=== PATIENT | male | born 1960 | race Caucasian/White ===

== ENCOUNTER 2016-11-16 10:57 | Inpatient (IN) | payer SELFPAY ==
[~2016-11-16] VITALS: Ht 185.4 cm; Wt 89.9 kg
[2016-11-16] VITALS (7 sets, daily range): BP systolic 111–152; BP diastolic 64–82; PULSE 65–74; RESP 16–20; TEMP 96.5–98; O2SAT 97–100
[~2016-11-16 10:57] MED LIST: AMLO5 PO; ASPI325T33 PO; FOLI1TAB4 PO; LIPI10TA PO; METO25TA3 PO; NITR0.4S SL; PANT40TA3 PO; VITA100T2 PO
[2016-11-16] MEDS ORDERED: SODIUM CHLOR 0.9% 1000 ML INJ 1,000 ML IV SCH (11:23)
[2016-11-16] MEDS ORDERED: DIAZEPAM 5 MG TAB PO ONE (11:30)
[2016-11-16] MEDS ORDERED: SODIUM CHLORIDE 0.9% FLUSH 10 ML FLUSH IVF PRN (11:30)
[2016-11-16] MEDS ORDERED: MECLIZINE HCL 25 MG TAB PO ONE (11:30)
--- NOTE | 2016-11-16 11:35 | PD ---
HPI Chief Complaint: Dizziness Time Seen by Provider: 11:27 Travel History International Travel<30 days: No Contact w/Intl Traveler<30days: No Traveled to known affect area: No History of Present Illness HPI 56-year-old male with a history of CAD and alcohol abuse presents to the emergency department for evaluation of dizziness for 2 weeks. 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 States that he went home and drink plenty of fluids however the symptoms have persisted. States that when he is lying still in bed he is symptom-free however when he gets up and tries to walk he has double vision and gait instability, feels as though the richards and floors are shifting. Denies any lightheadedness, presyncope or syncope. Denies any chest pain, shortness of breath, nausea, vomiting, diarrhea, chest pain, shortness of breath, abdominal pain, numbness or tingling, weakness. States that 2 weeks ago after these symptoms began he lost his balance and fell hitting his head on a dresser but denies loss of consciousness. Denies any other head trauma. The patient does drink 12 beers daily, states he has had 3 beers today. Denies any anticoagulation. Denies taking any medications. Denies drug use. No other complaints. PFSH Past Medical History Blood Disorders: No Anxiety: No Depression: No Cancer: No Cardiac Catheterization: Yes (2009, 2015) Cardiovascular Problems: Yes Chest Pain: Yes Cerebrovascular Accident: No Diminished Hearing: No Endocrine: No Gastrointestinal Disorders: No Genitourinary: No Immune Disorder: No Implanted Vascular Access Dvce: No Musculoskeletal: No Neurologic: Yes Psychiatric: No Reproductive: No Respiratory: No Immunizations Current: Yes Migraines: Yes Myocardial Infarction: Yes (MILD) Seizures: No Tetanus Vaccination: Unknown Influenza Vaccination: No Past Surgical History Abdominal Surgery: No Cardiac Surgery: No Ear Surgery: No Endocrine Surgery: No Eye Surgery: No Genitourinary Surgery: No Gynecologic Surgery: No Oral Surgery: No Thoracic Surgery: No Tonsillectomy: Yes Other Surgery: Yes (SKIN CANCER REMOVED) Social History Alcohol Use: Yes (12X 12 oz BEERS DAILY) Tobacco Use: Yes (CHEWS TOBACCO) Substance Use: No Allergies-Medications (Allergen,Severity, Reaction): Coded Allergies: No Known Allergies (Verified , 11/16/16) Reported Meds & Prescriptions Reported Meds & Active Scripts Active No Active Prescriptions or Reported Medications Review of Systems Except as stated in HPI: all other systems reviewed are Neg Physical Exam Narrative GENERAL: Well-nourished and well-developed pleasant male patient in no acute distress who is nontoxic appearing. SKIN: Warm and dry. HEAD: Normocephalic and atraumatic. No bony point tenderness or crepitus noted throughout the sinuses. EYES: No injection, drainage, or hyphema noted. PERRLA. EOMI. ENT: No nasal drainage noted. Oropharynx is clear and the TMs are normal with good landmarks. NECK: Supple and the trachea is midline. CARDIOVASCULAR: Regular rate and rhythm. RESPIRATORY: Breath sounds are equal bilaterally with no accessory muscle use, wheezing, rhonchi, or crackles. GASTROINTESTINAL: Abdomen is soft, non-tender, and nondistended. MUSCULOSKELETAL: No obvious deformities, swelling, cyanosis, or ecchymosis is present throughout the upper and lower extremities. Patient has full range of motion without any signs of neurovascular compromise. Strength 5/5 upper and lower extremities equal bilaterally. NEUROLOGICAL: Awake, alert, and oriented. Normal speech and gait. Normal heel- to-suggs test. Normal finger to nose test. Normal rapid alternating movements. Cranial nerves are grossly intact. Data Data Last Documented VS Vital Signs Date Time Temp Pulse Resp B/P Pulse Ox O2 Delivery O2 Flow Rate FiO2 11/16/16 11:32 16 98 Room Air 11/16/16 11:20 69 125/79 11/16/16 10:59 97.3 Orders Electrocardiogram (11/16/16 11:23) Complete Blood Count With Diff (11/16/16 11:23) Comprehensive Metabolic Panel (11/16/16 11:23) Magnesium (Mg) (11/16/16 11:23) Act Partial Throm Time (Ptt) (11/16/16 11:23) Prothrombin Time / Inr (Pt) (11/16/16 11:23) Urinalysis - C+S If Indicated (11/16/16 11:23) Chest, Single Ap (11/16/16 11:23) Ct Brain W/O Iv Contrast(Rout) (11/16/16 11:23) Ecg Monitoring (11/16/16 11:23) Iv Access Insert/Monitor (11/16/16 11:23) Oximetry (11/16/16 11:23) Sodium Chloride 0.9% Flush (Ns Flush) (11/16/16 11:30) Meclizine (Antivert) (11/16/16 11:30) Diazepam (Valium) (11/16/16 11:30) Sodium Chlor 0.9% 1000 Ml Inj (Ns 1000 M (11/16/16 11:23) Alcohol (Ethanol) (11/16/16 11:30) Drug Screen, Random Urine (11/16/16 11:49) Aspirin Chew (Aspirin Chew) (11/16/16 13:45) Mri Brain W&W/O Contrast (11/16/16 ) Mra Brain W/O Contrast (Cow) (11/16/16 ) Us Carotid Arteries Comp Bilat (11/16/16 ) Echo 2d Comp With Doppler (11/16/16 ) Consult Neurology (11/16/16 ) Admit Order (Ed Use Only) (11/16/16 13:45) Admit To Inpatient (11/16/16 ) Vital Signs (Adult) Q4H (11/16/16 13:48) Neuro Checks Q4H (11/16/16 13:48) Activity Oob With Assistance (11/16/16 13:48) Diet Heart Healthy (11/16/16 Lunch) Sodium Chloride 0.9% Flush (Ns Flush) (11/16/16 14:00) Sodium Chloride 0.9% Flush (Ns Flush) (11/16/16 21:00) Ondansetron Inj (Zofran Inj) (11/16/16 14:00) Basic Metabolic Panel (Bmp) (11/17/16 06:00) Complete Blood Count With Diff (11/17/16 06:00) Scd Bilateral/Knee High FERNANDO.BID (11/16/16 13:48) Naloxone Inj (Narcan Inj) (11/16/16 14:00) Docusate Sodium-Senna (Eleni-Colace) (11/16/16 21:00) Magnesium Hydroxide Liq (Milk Of Magnesi (11/16/16 14:00) Sennosides (Senokot) (11/16/16 14:00) Bisacodyl Supp (Dulcolax Supp) (11/16/16 14:00) Lactulose Liq (Lactulose Liq) (11/16/16 14:00) Inpatient Certification (11/16/16 ) Labs Laboratory Tests Test 11/16/16 11:30 White Blood Count 6.2 TH/MM3 Red Blood Count 5.00 MIL/MM3 Hemoglobin 15.0 GM/DL Hematocrit 44.2 % Mean Corpuscular Volume 88.6 FL Mean Corpuscular Hemoglobin 30.1 PG Mean Corpuscular Hemoglobin 34.0 % Concent Red Cell Distribution Width 13.4 % Platelet Count 245 TH/MM3 Mean Platelet Volume 9.2 FL Neutrophils (%) (Auto) 58.4 % Lymphocytes (%) (Auto) 23.1 % Monocytes (%) (Auto) 14.4 % Eosinophils (%) (Auto) 2.9 % Basophils (%) (Auto) 1.2 % Neutrophils # (Auto) 3.6 TH/MM3 Lymphocytes # (Auto) 1.4 TH/MM3 Monocytes # (Auto) 0.9 TH/MM3 Eosinophils # (Auto) 0.2 TH/MM3 Basophils # (Auto) 0.1 TH/MM3 CBC Comment DIFF FINAL Differential Comment Prothrombin Time 10.8 SEC Prothromb Time International 1.0 RATIO Ratio Activated Partial 27.7 SEC Thromboplast Time Urine Color LIGHT-YELLOW Urine Turbidity CLEAR Urine pH 5.0 Urine Specific [place] 1.004 Urine Protein NEG mg/dL Urine Glucose (UA) NEG mg/dL Urine Ketones NEG mg/dL Urine Occult Blood NEG Urine Nitrite NEG Urine Bilirubin NEG Urine Urobilinogen LESS THAN 2.0 MG/DL Urine Leukocyte Esterase NEG Microscopic Urinalysis Comment CULT NOT INDICATED Sodium Level 134 MEQ/L Potassium Level 4.1 MEQ/L Chloride Level 101 MEQ/L Carbon Dioxide Level 24.0 MEQ/L Anion Gap 9 MEQ/L Blood Urea Nitrogen 10 MG/DL Creatinine 0.95 MG/DL Estimat Glomerular Filtration 81 ML/MIN Rate Random Glucose 85 MG/DL Calcium Level 9.6 MG/DL Magnesium Level 2.0 MG/DL Total Bilirubin 0.4 MG/DL Aspartate Amino Transf 43 U/L (AST/SGOT) Alanine Aminotransferase 47 U/L (ALT/SGPT) Alkaline Phosphatase 55 U/L Total Protein 8.0 GM/DL Albumin 4.0 GM/DL Urine Opiates Screen NEG Urine Barbiturates Screen NEG Urine Amphetamines Screen NEG Urine Benzodiazepines Screen NEG Urine Cocaine Screen NEG Urine Cannabinoids Screen NEG Ethyl Alcohol Level 48 MG/DL MDM Medical Decision Making Medical Screen Exam Complete: Yes Emergency Medical Condition: Yes Differential Diagnosis CVA versus TIA versus intracranial hemorrhage versus electrolyte abnormality Narrative Course 56-year-old male presents to the emergency department for evaluation of dizziness and diplopia for 2 weeks. Patient is afebrile, vital signs are stable. Physical examination is unremarkable. No focal neurologic deficits. He has no gait instability noted on examination. He reports walking causes his symptoms. IV access is obtained, labs are drawn and sent. Patient is placed on cardiac telemetry and pulse oximetry monitoring. Patient is administered meclizine 25 mg orally and Valium 5 mg orally. CBC is unremarkable. CBC is unremarkable. Coags are unremarkable. Urine drug screen is negative. EtOH is 48. Urinalysis unremarkable. Chest x-ray is negative for any acute abnormalities. Head CT shows questionable area of acute infarction in the right anterior medial thalmus without hemorrhage or mass effect. Head CT is suggestive of acute CVA which is consistent with the patient's symptoms. Patient will be admitted to medicine service with neurology consultation. I discussed the case with my attending physician Dr. Flanagan who is aware of the patients history, physical examination findings, and treatment plan. Physician Communication Physician Communication I spoke with Dr. Neely neurologist on-call who requests Brain MRI/MRA, carotid ultrasounds and echocardiogram be ordered and will consult on the patient. I spoke with Dr. Dawn [facility] who agrees to admit the patient to his service. Diagnosis Primary Impression: Acute CVA (cerebrovascular accident) Admitting Information Admitting Physician Requests: Admit Scripts No Active Prescriptions or Reported Meds Malgorzata Dawn Nov 16, 2016 11:35
[2016-11-16 11:40] LABS: AUTOMATED NEUTROPHIL # 3.6 TH/MM3 (1.8-7.7); BASOPHIL # 0.1 TH/MM3 (0-0.2); BASOPHIL % 1.2 % (0.0-2.0); EOSINOPHIL # 0.2 TH/MM3 (0-0.4); EOSINOPHIL % 2.9 % (0.0-4.0); HEMATOCRIT 44.2 % (39.0-51.0); HEMO FLAGS DIFF FINAL; LYMPH % 23.1 % (9.0-44.0); LYMPHOCYTE # 1.4 TH/MM3 (1.0-4.8); MEAN CELL VOLUME 88.6 FL (80.0-100.0); MEAN CORPUSCULAR HEMOGLOBIN 30.1 PG (27.0-34.0); MONO % 14.4 % (0.0-8.0); NEUT % 58.4 % (16.0-70.0); PLATELET COUNT 245 TH/MM3 (150-450); RED CELL DISTRIBUTION WIDTH 13.4 % (11.6-17.2); WHITE BLOOD COUNT 6.2 TH/MM3 (4.0-11.0)
[2016-11-16 11:48] LABS: APTT (PATIENT) 27.7 SEC (24.3-30.1); PROTHROMBIN TIME - PATIENT 10.8 SEC (9.8-11.6)
[2016-11-16 11:57] LABS: ANION GAP 9 MEQ/L (5-15); BLOOD UREA NITROGEN 10 MG/DL (7-18); CHLORIDE 101 MEQ/L (98-107); GLOMERULAR FILTRATION RATE 81 ML/MIN (>89); POTASSIUM 4.1 MEQ/L (3.5-5.1); SODIUM (NA) 134 MEQ/L (136-145)
[2016-11-16 11:59] LABS: ALT (GPT) 47 U/L (12-78)
[2016-11-16 12:01] LABS: ALKALINE PHOSPHATASE 55 U/L (45-117); AST (GOT) 43 U/L (15-37); TOTAL BILIRUBIN ADULT 0.4 MG/DL (0.2-1.0)
[2016-11-16 12:22] LABS: BLOOD, URINE NEG (NEG); GLUCOSE,URINE NEG (NEG); KETONE, URINE NEG (NEG); NITRITE,URINE NEG (NEG); URINE COLOR LIGHT-YELLOW (YELLW/STRAW)
[2016-11-16 12:27] LABS: AMPHETAMINE, URINE NEG (NEG); BARBITURATES, URINE NEG (NEG); COCAINE, URINE NEG (NEG)
[2016-11-16 12:28] LABS: COMMENT (UR) CULT NOT INDICATED; CULTURE IF INDICATED CULT NOT INDICATED
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
--- NOTE | 2016-11-16 13:08 | RADRPT ---
EXAM DATE/TIME: 11/16/2016 12:44 [facility] COMPARISON: CT BRAIN W/O CONTRAST, March 12, 2016, 12:25. INDICATIONS : Patient got over heated while working out side two weeks ago.since then patient been dizzy with a mil d headache. RADIATION DOSE: 36.13 CTDIvol (mGy) MEDICAL HISTORY : Cardiovascular disease. SURGICAL HISTORY : None. ENCOUNTER: Initial ACUITY: 1 day PAIN SCALE: 2/10 LOCATION: cranial TECHNIQUE: Multiple contiguous axial images were obtained of the head. Using automated exposure control and adj ustment of the mA and/or kV according to patient size, radiation dose was kept as low as reasonably a chievable to obtain optimal diagnostic quality images. DICOM format image data is available electro nically for review and comparison. FINDINGS: There is no evidence for intracranial hemorrhage, mass effect, mass lesions, edema, or extra-axial fl uid collections. The visualized bony structures appear intact. The ventricles are normal size for t he patient's age. Questionable area of lucency is seen involving anteromedial thalamus measuring 9 mm in size not present previously or possibly due to volume averaging artifact. CONCLUSION: Questionable area of acute infarction in the right anteromedial thalamus without hemorrha ge or mass effect. Sharon Sheriff MD on November 16, 2016 at 13:02 Board Certified Radiologist. This report was verified electronically.
[2016-11-16] MEDS ORDERED: ASPIRIN 81 MG CHEW TAB CHEW ONE (13:45)
[2016-11-16] MEDS ORDERED: ONDANSETRON HCL 4 MG/2 ML VIAL IVP PRN (14:00)
[2016-11-16] MEDS ORDERED: LACTULOSE SYRUP 20 GM/30 ML CUP PO PRN (14:00)
[2016-11-16] MEDS ORDERED: SENNOSIDES 8.6 MG TAB PO PRN (14:00)
[2016-11-16] MEDS ORDERED: NALOXONE HCL 0.4 MG/ML AMP IV PRN (14:00)
[2016-11-16] MEDS ORDERED: SODIUM CHLORIDE 0.9% FLUSH 10 ML FLUSH IV FLUSH PRN (14:00)
[2016-11-16] MEDS ORDERED: MAGNESIUM HYDROXIDE SUSP 30 ML CUP PO PRN (14:00)
[2016-11-16] MEDS ORDERED: BISACODYL 10 MG SUPP RECTAL PRN (14:00)
--- NOTE | 2016-11-16 15:00 | RADRPT ---
EXAM DATE/TIME: 11/16/2016 13:44 [facility] COMPARISON: US TESTICLE W/DOPPLER, April 22, 2015, 9:41. INDICATIONS : CVA. MEDICAL HISTORY : Migraine. Skin cancer. Heart attack. SURGICAL HISTORY : Tonsillectomy. Cardiac Catheterization. Vasectomy. Joint replacement surgery. Skin cancer removed . Left hip jimenez device. ENCOUNTER: Initial ACUITY: 1 day PAIN SCORE: 2/10 LOCATION: Bilateral neck PEAK SYSTOLIC VELOCITIES (cm/sec): ICA/CCA RATIO: Right: 0.8 Left: 0.8 ICA: Right: 55 Left: 64 CCA: Right: 72 Left: 82 ECA: Right: 75 Left: 63 VERTEBRAL: Right: 27 antegrade Left: 47 antegrade Elevated flow velocities and ICA/CCA ratios have been found to correlate with increased degrees of vessel stenosis, calculated as percentage of diameter relative to a normal segment of distal ICA/CCA FINDINGS: RIGHT CAROTID: No significant stenosis is visualized. The waveforms are within normal limits. LEFT CAROTID: No significant stenosis is visualized. The waveforms are within normal limits. VERTEBRAL ARTERIES: Antegrade flow is seen in both vertebral arteries. MISCELLANEOUS: None. CONCLUSION: 1. No hemodynamically significant carotid artery stenosis. Paramjit Martines MD on November 16, 2016 at 14:57 Board Certified Radiologist. This report was verified electronically.
--- NOTE | 2016-11-16 16:15 | EKG ---
Date Performed: 11/16/2016 Time Performed: 11:39:58 PTAGE: 56 years EKG: Sinus rhythm WITH FIRST DEGREE AV BLOCK BORDERLINE LEFT AXIS DEVIATION VOLTAGE CRITERIA FOR LVH DIFFUSE ST-T TUTTLE GES ABNORMAL ECG Compared to prior tracing no significant change DOCTOR: Berta Harris Interpretating Date/Time 11/16/2016 16:14:23
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
[2016-11-16] MEDS ORDERED: HALOPERIDOL LACTATE 5 MG/ML AMP IM PRN (18:00)
[2016-11-16] MEDS ORDERED: LORazepam 2 MG TAB PO PRN (18:00)
[2016-11-16] MEDS ORDERED: LORazepam 1 MG TAB PO PRN (18:00)
[2016-11-16] MEDS ORDERED: FLUMAZENIL 0.5 MG/5 ML VIAL IV PUSH PRN (18:00)
[2016-11-16] MEDS ORDERED: LORazepam 2 MG/ML VIAL IV PUSH PRN ×4 (18:00)
--- NOTE | 2016-11-16 18:33 | ECHRPT ---
Indication: CVA/TIA CONCLUSIONS Normal left ventricular size. Wall thickness is normal. The left ventricular systolic function is borderline normal with an estimated ejection fraction of 5 0%. Mitral annular calcification is present. BP: / HR: Rhythm: Sinus MEASUREMENTS (Male / Female) Normal Values Technical Quality:Fair 2D ECHO LV Diastolic Diameter PLAX 5.0 cm 4.2 - 5.9 / 3.9 - 5.3 cm LV Systolic Diameter PLAX 4.1 cm IVS Diastolic Thickness 1.1 cm 0.6 - 1.0 / 0.6 - 0.9 cm LVPW Diastolic Thickness 0.7 cm 0.6 - 1.0 / 0.6 - 0.9 cm LV Relative Wall Thickness 0.4 LA Systolic Diameter LX 3.7 cm 3.0 - 4.0 / 2.7 - 3.8 cm M-MODE Aortic Root Diameter MM 3.2 cm AV Cusp Separation MM 2.1 cm DOPPLER Mitral E Point Velocity 59.0 cm/s Mitral A Point Velocity 23.7 cm/s Mitral E to A Ratio 2.5 TR Peak Velocity 102.0 cm/s TR Peak Gradient 4.2 mmHg FINDINGS LEFT VENTRICLE Normal left ventricular size. Wall thickness is normal. The left ventricular systolic function is borderline normal with an estimated ejection fraction of 5 0%. RIGHT VENTRICLE Normal right ventricular size and systolic function. LEFT ATRIUM The left atrial size is normal. RIGHT ATRIUM The right atrial size is normal. ATRIAL SEPTUM Normal atrial septal thickness without atrial level shunting by limited color doppler interrogation. AORTA The aortic root and proximal ascending aorta are normal in size on limited imaging. MITRAL VALVE Mitral annular calcification is present. AORTIC VALVE Trileaflet aortic valve. No aortic valve stenosis or regurgitation. Aortic sclerosis, mild. TRICUSPID VALVE Structurally normal tricuspid valve. No tricuspid valve stenosis or regurgitation. PULMONARY VALVE The pulmonary valve is not well visualized. VESSELS The inferior vena cava is normal in size. PERICARDIUM No pericardial effusion. Berta Harris MD, FACC (Electronically Signed) Final Date:16 November 2016 18:32
[2016-11-16] MEDS ORDERED: GADODIAMIDE PF 287 MG/ML 20 ML VIAL (for RAD MRI) IV ONE (19:01)
--- NOTE | 2016-11-16 19:58 | RADRPT ---
EXAM DATE/TIME: 11/16/2016 18:45 [facility] COMPARISON: No previous studies available for comparison. INDICATIONS : Diplopia, Abnormal CT. CONTRAST: 18 cc Omniscan (gadodiamide) IV MEDICAL HISTORY : None. SURGICAL HISTORY : Pelvic ENCOUNTER: Initial ACUITY: 1 day PAIN SCORE: 0/10 LOCATION: cranial TECHNIQUE: Multiplanar, multisequence MRI of the brain was performed both prior to and following the administrat ion of paramagnetic contrast. FINDINGS: There is no restricted diffusion. Focal areas of high signal are seen in the mid basalganglia and the right cerebellar hemisphere. The se areas show intense enhancement without mass effect. Midline structures are intact. Ventricle size is appropriate. There are no extra-axial fluid collections appreciated. The orbits and nasal sinuses are unremarkable. CONCLUSION: Given the appearance on the T1-weighted acquisitions in the enhancement metastatic disease would be c onsideration. Melanoma could give very similar appearance. Lack of edema would suggest these are no t related to lung or colon. Careful evaluation is suggested to exclude melanoma. Devang Martines MD FACR on November 16, 2016 at 19:51 Board Certified Radiologist. This report was verified electronically.
--- NOTE | 2016-11-16 20:04 | RADRPT ---
EXAM DATE/TIME: 11/16/2016 18:45 [facility] COMPARISON: No previous studies available for comparison. INDICATIONS : Diplopia, Abnormal CT. MEDICAL HISTORY : None. SURGICAL HISTORY : Pelvis ENCOUNTER: Initial ACUITY: 1 day PAIN SCORE: 0/10 LOCATION: Please note a normal MRA of the brain does not entirely exclude the possibility of a small aneurysm, nor the possibility of distal intracranial vessel disease. TECHNIQUE: 3D time of flight MRA was performed. Source images, multiplanar STS MIP, and 3D volume MIP reconstru ctions were reviewed. FINDINGS: There is excellent visualization of the major intracranial arteries out to the second-order branch ve ssels. There is no evidence for aneurysm, vessel truncation or stenosis, and no evidence for vascula r malformation. CONCLUSION: Negative MRA. Devang Martines MD FACR on November 16, 2016 at 20:02 Board Certified Radiologist. This report was verified electronically.
[2016-11-16] MEDS: SODIUM CHLORIDE 0.9% FLUSH 10 ML FLUSH IV FLUSH SCH (20:28)
[2016-11-16] MEDS: DOCUSATE SODIUM 50 MG/SENNA 8.6 MG TAB PO SCH (20:28)
[2016-11-16] MEDS: THIAMINE HCL 100 MG TAB PO SCH (21:50)
[2016-11-16] MEDS: FOLIC ACID 1 MG TAB PO SCH (21:50)
[2016-11-17] VITALS: BP 119/71; PULSE 59; RESP 18; TEMP 96.7; O2SAT 97
[2016-11-17] MEDS ORDERED: IOHEXOL 350 MG/ML 10 ML VIAL (for RAD DIAG) IV ONE (01:15)
--- NOTE | 2016-11-17 02:07 | RADRPT ---
EXAM DATE/TIME: 11/17/2016 01:16 [facility] COMPARISON: No previous studies available for comparison. INDICATIONS : Evaluate for metastatic disease. IV CONTRAST: 95 cc Omnipaque 350 (iohexol) IV ; Cumulative dose for multiple exams. RADIATION DOSE: 13.59 CTDIvol (mGy) ; Combined studies - Thorax/Abdomen/Pelvis MEDICAL HISTORY : Cardiovascular disease. Seizures. SURGICAL HISTORY : Pelvic fracture ENCOUNTER: Initial ACUITY: 1 day PAIN SCALE: 0/10 LOCATION: chest TECHNIQUE: Volumetric scanning of the chest was performed. Using automated exposure control and adjustment of t he mA and/or kV according to patient size, radiation dose was kept as low as reasonably achievable to obtain optimal diagnostic quality images. DICOM format image data is available electronically for review and comparison. Follow-up recommendations for incidentally detected pulmonary nodules are based at a minimum on nodul e size and patient risk factors according to Fleischner Society Guidelines. FINDINGS: LUNGS: 6 mm nodular density in the right midlung on image #36 adjacent to the major fissure. PLEURA: There is no pleural thickening or pleural effusion. MEDIASTINUM: The heart and great vessels demonstrate no acute abnormality. There is no mediastinal or hilar lymph adenopathy. AXILLAE: Within normal limits. No lymphadenopathy. SKELETAL: Within normal limits for patient age. MISCELLANEOUS: Please see abdomen CT report. CONCLUSION: 6 mm nodular density in the right midlung. Recommend [address] given that there is po ssible metastatic neoplasm identified on brain MRI. Lungs otherwise clear. Sandoval Uribe MD on November 17, 2016 at 2:00 Board Certified Radiologist. This report was verified electronically.
--- NOTE | 2016-11-17 02:11 | RADRPT ---
EXAM DATE/TIME: 11/17/2016 01:16 [facility] COMPARISON: No previous studies available for comparison. INDICATIONS : Evaluate for metastatic disease. IV CONTRAST: 95 cc Omnipaque 350 (iohexol) IV ; Cumulative dose for multiple exams. ORAL CONTRAST: No oral contrast ingested. RADIATION DOSE: 13.59 CTDIvol (mGy) ; Combined studies - Thorax/Abdomen/Pelvis MEDICAL HISTORY : Cardiovascular disease. Seizures. SURGICAL HISTORY : Pelvic fracture ENCOUNTER: Initial ACUITY: 1 day PAIN SCALE: 0/10 LOCATION: abdomen TECHNIQUE: Volumetric scanning of the abdomen and pelvis was performed. Using automated exposure control and ad justment of the mA and/or kV according to patient size, radiation dose was kept as low as reasonably achievable to obtain optimal diagnostic quality images. DICOM format image data is available electro nically for review and comparison. FINDINGS: LOWER LUNGS: The visualized lower lungs are clear. LIVER: Diffuse hypodensity of the liver indicating hepatic steatosis. No focal mass identified. SPLEEN: Normal size without lesion. PANCREAS: Within normal limits. KIDNEYS: Normal in size and shape. There is no mass, stone or hydronephrosis. ADRENAL GLANDS: Within normal limits. VASCULAR: There is no aortic aneurysm. BOWEL/MESENTERY: No evidence of bowel dilatation. No free air or free fluid. Appendix within normal limits. ABDOMINAL WALL: Within normal limits. RETROPERITONEUM: There is no lymphadenopathy. BLADDER: No wall thickening or mass. REPRODUCTIVE: Within normal limits. INGUINAL: There is no lymphadenopathy or hernia. MUSCULOSKELETAL: A left sided pubic rami fractures. Degenerative findings lower lumbar spine. CONCLUSION: 1. Hepatic steatosis. 2. No evidence of metastatic malignancy in the abdomen or pelvis. Sandoval Uribe MD on November 17, 2016 at 2:05 Board Certified Radiologist. This report was verified electronically.
[2016-11-17 04:00] VITALS: BP 113/69; PULSE 56; RESP 18; TEMP 96.3; O2SAT 97
[2016-11-17 08:00] VITALS: BP 123/77; PULSE 57; RESP 20; TEMP 96.7; O2SAT 98
[2016-11-17] MEDS: THIAMINE HCL 100 MG TAB PO SCH (08:27)
[2016-11-17] MEDS: SODIUM CHLORIDE 0.9% FLUSH 10 ML FLUSH IV FLUSH SCH ×2 (08:27→21:04)
[2016-11-17] MEDS: DOCUSATE SODIUM 50 MG/SENNA 8.6 MG TAB PO SCH ×2 (08:28→21:04)
[2016-11-17] MEDS: FOLIC ACID 1 MG TAB PO SCH (08:28)
[2016-11-17] MEDS ORDERED: ASPIRIN EC 81 MG TABEC PO SCH (09:00)
--- NOTE | 2016-11-17 09:14 | MB ---
cc: TIA MONTEMAYOR M.D. DATE OF CONSULTATION 11/16/2016 REASON FOR CONSULTATION Possible stroke. HISTORY OF PRESENT ILLNESS Mr. Helton is a 56-year-old man who a couple of weeks ago noted difficulty with dizziness and double vision which came on suddenly and persisted. He had no slurred speech, no focal weakness. His condition did not improve so he came to the emergency room. He has no prior history of stroke. PAST MEDICAL HISTORY 1. History of coronary artery disease with cardiac catheterization. 2. Tonsillectomy. 3. History of skin cancer. ALLERGIES None known. MEDICATIONS AT HOME None. NEUROLOGIC EXAMINATION VITAL SIGNS: Blood pressure is 128/70, pulse 68, respirations 20, temperature 97 degrees. NEUROLOGICAL EXAMINATION Higher cortical functions normal. Cranial nerves intact. I do not detect any extraocular dysmotility at the present time. Motor Exam: He has got 5/5 strength of all groups in both upper and lower extremities. There is no drift. Fine motor skills within normal limits. Reflexes symmetric. IMAGING STUDIES MRI of the brain - Focal areas of high signal are seen in the basal ganglia and right cerebellar hemispheres. They show intense enhancement and no mass effect. Metastatic disease is a consideration, possible melanoma. MRA of the brain is normal. CT scan of the head - Possible acute infarction in the right thalamus without hemorrhage. Carotid ultrasound is normal. LABORATORY DATA White count 6200, hemoglobin 15, hematocrit 44%, platelet 245,000. Sodium is 134, potassium 4.1, chloride 101, CO2 24, BUN is 10, creatinine 0.95, GFR is 81, calcium 9.6. PT 10.8, INR 1, APTT 27.7. IMPRESSION Possible metastatic foci to brain. This contrast enhancement would be atypical for stroke. RECOMMENDATIONS I would like to get a CT scan of the abdomen and chest to rule out a potential primary, also rule out skin lesions. MD NILSON Connell/NESS /9:51 PM /9:11 AM
--- NOTE | 2016-11-17 11:45 | HHI.PR ---
Subjective Remarks MRI is more suggestive of metastasis than CVA. Findings discussed with the patient. Melanoma is of concern. The patient now recalls that he had a biopsy of the lesion at his posterior neck but did not follow-up with the results. I' ve contacted the dermatology office ([facility]) and fax them consent for release of the record to be faxed back to our hospital. Full-body scan with CAT scan shows a nodule in the lung which could also be contributory but is less suspicious at this point. Objective Vital Signs Date Time Temp Pulse Resp B/P Pulse Ox O2 Delivery O2 Flow Rate FiO2 11/17/16 08:00 96.7 57 20 123/77 98 11/17/16 04:00 96.3 56 18 113/69 97 11/17/16 00:00 96.7 59 18 119/71 97 11/16/16 20:00 96.5 65 18 138/81 100 11/16/16 17:50 97.9 68 20 128/70 100 11/16/16 16:00 98.0 74 16 111/64 97 Room Air 11/16/16 12:30 72 17 127/65 99 Room Air I/O 11/16/16 11/16/16 11/16/16 11/17/16 11/17/16 11/17/16 07:00 15:00 23:00 07:00 15:00 23:00 Intake Total 240 ml 0 ml 0 ml Output Total 700 ml Balance -460 ml 0 ml 0 ml Intake Oral 240 ml IV Total 0 ml 0 ml Output Urine Total 700 ml # Voids 2 Result Diagram: 11/16/16 1130 11/16/16 1130 Objective Remarks GENERAL: NAD, A&Ox3 HEAD: Normocephalic. NECK: Supple, trachea midline. No lymphadenopathy. EYES: No scleral icterus. No injection or drainage. CARDIOVASCULAR: Regular rate and rhythm without murmurs, gallops, or rubs. RESPIRATORY: Breath sounds equal bilaterally. No accessory muscle use. GASTROINTESTINAL: Abdomen soft, non-tender, nondistended. MUSCULOSKELETAL: No cyanosis, or edema. SKIN: Warm and dry. Biopsy site scar and upper back/base of neck posteriorly NEURO: No focal neurological deficitis. A/P Problem List: (1) Brain lesion ICD Code: G93.9 (2) Double vision ICD Code: H53.2 Assessment and Plan Assessment and plan 56-year-old male admitted with an acute onset of double vision 2 weeks ago who had evidence of CVA on CAT scan but now with specified evidence of brain lesion on MRI. Possible melanoma, skin biopsy results are being requested from his outpatient dermatology office. Brain lesion Double vision Possible metastatic melanoma Obtain biopsy results from outpatient dermatology clinic Oncology consulted Alcohol abuse No evidence of DTs Continue serial protocol Thiamine Folic acid DVT prophylaxis SCDs Discharge planning Further workup of brain mass needed prior to discharge consideration Paramjit Dawn MD Nov 17, 2016 11:45
[2016-11-17 12:18] LABS: AUTOMATED NEUTROPHIL # 4.5 TH/MM3 (1.8-7.7); BASOPHIL # 0.1 TH/MM3 (0-0.2); BASOPHIL % 1.1 % (0.0-2.0); EOSINOPHIL # 0.1 TH/MM3 (0-0.4); HEMO FLAGS DIFF FINAL; LYMPH % 17.2 % (9.0-44.0); LYMPHOCYTE # 1.1 TH/MM3 (1.0-4.8); MEAN CORPUSCULAR HEMOGLOBIN 30.2 PG (27.0-34.0); MEAN CORPUSCULAR HGB CONC 33.9 % (32.0-36.0); MONO % 11.4 % (0.0-8.0); NEUT % 68.3 % (16.0-70.0); PLATELET COUNT 253 TH/MM3 (150-450); RED BLOOD COUNT 5.28 MIL/MM3 (4.50-5.90); WHITE BLOOD COUNT 6.6 TH/MM3 (4.0-11.0)
[2016-11-17 12:27] VITALS: BP 122/72; PULSE 63; RESP 20; TEMP 97.7; O2SAT 98
[2016-11-17 13:45] LABS: POTASSIUM 3.8 MEQ/L (3.5-5.1)
[2016-11-17 13:46] LABS: BICARBONATE 29.8 MEQ/L (21.0-32.0)
[2016-11-17 16:26] VITALS: BP 129/77; PULSE 65; RESP 20; TEMP 96.6; O2SAT 100
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
[2016-11-17 20:50] VITALS: BP 119/71; PULSE 69; RESP 16; TEMP 97.9; O2SAT 100
--- NOTE | 2016-11-17 22:09 | HHI.PR ---
Review/Management Diagnosis abnormal Brain MRI --dx not known at this time. Dr Lerma note is appreciated. Anand gómez discussed the case with Dr Lerma and I agree an LP would be worth pursuing to check cytology as well as routine csf studies. Plan LP in radiology tomorrow Ok from neuro standpoint to discharge after LP and follow up with me as outpatient in 2 weeks. I will review results of LP at that time and make arrangements for a follow up MRI brain in 2 months Diagnosis/Plan: Subjective Subjective Comments No acute events reported No headache He still has the symptoms of double vision and unsteady gait Active Medications Current Medications Medications (Trade) Dose Ordered Sig/Beni Route Start Time Stop Time Status Last Admin (NS Flush) 2 ml UNSCH PRN IV FLUSH 11/16/16 14:00 (NS Flush) 2 ml BID IV FLUSH 11/16/16 21:00 11/17/16 21:04 (Zofran Inj) 4 mg Q6H PRN IVP 11/16/16 14:00 (Narcan Inj) 0.4 mg UNSCH PRN IV 11/16/16 14:00 (Eleni-Colace) 1 tab BID PO 11/16/16 21:00 11/17/16 21:04 (Milk Of Magnesia Liq) 30 ml Q12H PRN PO 11/16/16 14:00 (Senokot) 17.2 mg Q12H PRN PO 11/16/16 14:00 (Dulcolax Supp) 10 mg DAILY PRN RECTAL 11/16/16 14:00 (Lactulose Liq) 30 ml DAILY PRN PO 11/16/16 14:00 (Romazicon Inj) 0.2 mg Q1M PRN IV PUSH 11/16/16 18:00 (Ativan) 1 mg Q4H PRN PO 11/16/16 18:00 (Ativan Inj) 1 mg Q4H PRN IV PUSH 11/16/16 18:00 (Ativan) 2 mg Q2H PRN PO 11/16/16 18:00 (Ativan Inj) 2 mg Q2H PRN IV PUSH 11/16/16 18:00 (Ativan Inj) 2 mg Q1H PRN IV PUSH 11/16/16 18:00 (Ativan Inj) 2 mg Q15M PRN IV PUSH 11/16/16 18:00 (Haldol Inj) 2 mg Q15M PRN IM 11/16/16 18:00 (Vitamin B1) 100 mg DAILY PO 11/16/16 18:00 11/17/16 08:27 (Folate) 1 mg DAILY PO 11/16/16 18:00 11/17/16 08:28 (Ecotrin Ec) 81 mg DAILY PO 11/17/16 09:00 11/17/16 08:28 Allergies Allergies Coded Allergies No Known Allergies (Verified11/16/16) Exam I&O / VS 11/16/16 11/16/16 11/17/16 15:00 23:00 07:00 Intake Total 240 ml 0 ml 0 ml Output Total 700 ml Balance -460 ml 0 ml 0 ml Intake Oral 240 ml IV Total 0 ml 0 ml Output Urine Total 700 ml # Voids 2 Vital Signs Date Time Temp Pulse Resp B/P Pulse Ox O2 Delivery O2 Flow Rate FiO2 11/17/16 20:50 97.9 69 16 119/71 100 11/17/16 16:26 96.6 65 20 129/77 100 11/17/16 12:27 97.7 63 20 122/72 98 11/17/16 08:00 96.7 57 20 123/77 98 11/17/16 04:00 96.3 56 18 113/69 97 11/17/16 00:00 96.7 59 18 119/71 97 Exam Comments alert and oriented times 3 Speech is fluent CN 2-12 normal MOTOR 5/5 BUE Objective Radiology Results CT chest -one small nodule of uncertain significance'CT abdomen and pelvis normal Micro and Labs Laboratory Tests Test 11/17/16 11:43 White Blood Count 6.6 Red Blood Count 5.28 Hemoglobin 16.0 Hematocrit 47.0 Mean Corpuscular Volume 89.0 Mean Corpuscular Hemoglobin 30.2 Mean Corpuscular Hemoglobin 33.9 Concent Red Cell Distribution Width 13.0 Platelet Count 253 Mean Platelet Volume 9.6 Neutrophils (%) (Auto) 68.3 Lymphocytes (%) (Auto) 17.2 Monocytes (%) (Auto) 11.4 Eosinophils (%) (Auto) 2.0 Basophils (%) (Auto) 1.1 Neutrophils # (Auto) 4.5 Lymphocytes # (Auto) 1.1 Monocytes # (Auto) 0.8 Eosinophils # (Auto) 0.1 Basophils # (Auto) 0.1 CBC Comment DIFF FINAL Differential Comment Sodium Level 138 Potassium Level 3.8 Chloride Level 99 Carbon Dioxide Level 29.8 Anion Gap 9 Blood Urea Nitrogen 10 Creatinine 1.13 Estimat Glomerular Filtration 67 Rate Random Glucose 134 Calcium Level 10.1 Wally Neely PhD MD Nov 17, 2016 22:09
[2016-11-18 00:21] VITALS: BP 112/70; PULSE 64; RESP 16; TEMP 98; O2SAT 97
[2016-11-18 04:00] VITALS: BP 110/70; PULSE 66; RESP 16; TEMP 97.6; O2SAT 99
[2016-11-18] MEDS: THIAMINE HCL 100 MG TAB PO SCH (08:00)
[2016-11-18] MEDS: DOCUSATE SODIUM 50 MG/SENNA 8.6 MG TAB PO SCH (08:00)
[2016-11-18] MEDS: SODIUM CHLORIDE 0.9% FLUSH 10 ML FLUSH IV FLUSH SCH (08:00)
[2016-11-18] MEDS: FOLIC ACID 1 MG TAB PO SCH (08:00)
[2016-11-18 08:46] VITALS: BP 110/70; PULSE 59; RESP 20; TEMP 96.9; O2SAT 97
[2016-11-18 09:12] LABS: HEMATOCRIT 46.3 % (39.0-51.0); MEAN CELL VOLUME 89.3 FL (80.0-100.0); MEAN CORPUSCULAR HEMOGLOBIN 29.5 PG (27.0-34.0); MEAN CORPUSCULAR HGB CONC 33.1 % (32.0-36.0); PLATELET COUNT 238 TH/MM3 (150-450); RED BLOOD COUNT 5.19 MIL/MM3 (4.50-5.90); RED CELL DISTRIBUTION WIDTH 13.4 % (11.6-17.2); REVIEW FLAG FINAL; WHITE BLOOD COUNT 7.7 TH/MM3 (4.0-11.0)
[2016-11-18 09:38] LABS: BICARBONATE 27.5 MEQ/L (21.0-32.0); POTASSIUM 4.1 MEQ/L (3.5-5.1)
--- NOTE | 2016-11-18 09:59 | PD.RAD ---
Post Procedure Progress Note Pre Procedure Diagnosis: (1) Acute visual loss Post Procedure Diagnosis: (1) Acute visual loss Procedure Date: Nov 18, 2016 Supervising Radiologist: Erasmo Sparrow Proceduralist/Assist: Kacey Sheets, RT(R), [place] Jones RT(R)() Anesthesia: Local Plan of Activity Patient to Unit: Nursing Unit Patient Condition: Good Additional Comments: L3-4 LP with clear CSF fluid. See PACS Report for procedural detail/treatment Erasmo Sparrow MD Nov 18, 2016 09:59
[2016-11-18 11:11] LABS: VOLUME TUBE # 1 2.5 ML
[2016-11-18 11:12] LABS: GROSS BLOOD TUBE #1 0 (0); GROSS BLOOD TUBE #2 0 (0); GROSS BLOOD TUBE #3 0 (0); GROSS BLOOD TUBE #4 0 (0); SUPERNATE COLOR TUBE #1 CLEAR (CLEAR); SUPERNATE COLOR TUBE #2 CLEAR (CLEAR); SUPERNATE COLOR TUBE #3 CLEAR (CLEAR); SUPERNATE COLOR TUBE #4 CLEAR (CLEAR); VOLUME TUBE # 2 2.8 ML; VOLUME TUBE # 3 2.5 ML
[2016-11-18 11:13] LABS: CSF LYMPHOCYTES 100 %; CSF NEUTROPHILS 0 %; WBC TUBE #4 2 /MM3 (0-10)
[2016-11-18 12:11] VITALS: BP 116/70; PULSE 57; RESP 20; TEMP 98.6; O2SAT 98
[2016-11-18] MEDS ORDERED: PRED5TAB PO (12:12)
--- NOTE | 2016-11-18 14:47 | HHI.DS ---
Discharge Summary Admission Date Nov 16, 2016 at 13:49 Discharge Date: Nov 18, 2016 Admitting Diagnosis Acute CVA (1) Alcohol abuse ICD Code: F10.10 Diagnosis: Secondary (2) Acute visual loss ICD Code: H53.139 Diagnosis: Principal (3) Brain lesion ICD Code: G93.9 Diagnosis: Principal (4) Double vision ICD Code: H53.2 Diagnosis: Principal Procedures Lumbar puncture Brief History - From Admission Written by Thomas Irby, acting as scribe for López Dinero on 11/16/16 at 1740. Mr. Helton is 56 yo, with history of alcohol abuse (12 beers a day) and uses chewing tobacco. He denied cardiac history, yet reported undergoing 2 cardiac catheterizations (2009 and April 2016) both reportedly were negative. He did report skateboarding in his youth as well as playing "semi-pro football for about 4 years." He stated he had "been hit in the head a few times " but denied concussion or injuries resulting in loss of consciousness. Mr. Helton reportedly was working out in the sun two weeks ago on and "I got overcome by the heat" and became dizzy and developed double vision. He said he went home and "rested my eyes" and seemingly had some improvement. He stated he went to bed and when he awoke the next morning, his double vision had returned. Over the course of the past two weeks he spoke of having unrelenting symptoms. He stated when he closes one eye "my vision goes back to normal." As his condition did not improve, he came to [facility] for evaluation and management of his condition. He denied lightheadedness, nausea, vomiting, decreased strength or motor function, confusion, decreased hearing or headache. He did note his sense of taste "was off." Memory was reportedly intact. CBC/BMP: 11/18/16 0834 11/18/16 0834 Significant Findings Laboratory Tests Test 11/16/16 11/17/16 11/18/16 11/18/16 11:30 11:43 08:34 09:40 Monocytes (%) (Auto) 14.4 % 11.4 % (0.0-8.0) (0.0-8.0) Sodium Level 134 MEQ/L (136-145) Estimat Glomerular Filtration 81 ML/MIN (>89) 67 ML/MIN (>89) 70 ML/MIN (>89) Rate Aspartate Amino Transf 43 U/L (15-37) (AST/SGOT) Ethyl Alcohol Level 48 MG/DL (0-5) Random Glucose 134 MG/DL 108 MG/DL (74-106) (74-106) Calcium Level 10.2 MG/DL (8.5-10.1) CSF Total Protein 55.1 MG/DL (15.0-45.0) Hospital Course Mr. Helton is a 56-year-old male. He was admitted secondary to suspicion for acute CVA and had double vision and some dizziness. MRI did not correlate with CVA but rather was suggestive of metastatic disease in the posterior brain. His symptoms have improved. Skin biopsy as an outpatient was positive for basal cell carcinoma which is unlikely to be the cause of his brain lesions. Lumbar puncture was obtained while here and cytology will be followed up as an outpatient. Plan for repeat MRI in 8 weeks if lumbar puncture testing shows no positive findings. Patient is recommended to follow-up with neurology as an outpatient in 2 weeks. Medically stable for discharge today. I did provide him with temporary dose of low-dose prednisone should he have recurrence of double vision. Pt Condition on Discharge: Stable Discharge Disposition: Discharge Home Discharge Time: <= 30 minutes Discharge Instructions DIET: Follow Instructions for: As Tolerated, No Restrictions Activities you can perform: Regular-No Restrictions Follow up Referrals: Neurology - 2 Weeks with Wally Neely PhD Oncology - As Per Protocol with Florentin PCP Follow-up - 2 Weeks New Medications: Prednisone (Prednisone) 5 Mg Tab 5 MG PO DAILY PRN Visual Changes #15 Ref 0 TAB Paramjit Dawn MD Nov 18, 2016 14:47
[2016-11-21 10:03] LABS: CSF CRYPTOCOCCUS AG CONF ND (NOT DETECTD)
[2016-11-21 19:54] LABS: VDRL CSF NON-REACTIVE (())
== END 2016-11-18 13:43 | disposition home or self-care (01) | DRG 72 ==
LOC: NEPD 10:57 → NEDA 13:49 → N05B 17:25
PROVIDERS: ADMIT Hospitalist; ATTEND Hospitalist
PROC: 009U3ZX Drainage of Spinal Canal, Percutaneous Approach, Diagnostic (ICD-10-PCS; principal; 2016-11-18)
DX: G93.9 Disorder of brain, unspecified (principal); F10.10 Alcohol abuse, uncomplicated; H53.2 Diplopia; R26.0 Ataxic gait; Z72.0 Tobacco use; Z85.828 Personal history of other malignant neoplasm of skin
CPT/HCPCS: 62270; 70450; 70544; 70553; 71010; 71260; 74177; 77003; 80048; 80053; 80307; 81001; 82945; 83735; 84157; 85025; 85027; 85610; 85730; 86403; 86592; 87015; 87070; 87102; 87116; 87205; 87206; 89051; 93005; 93306; 93880; 96360; A9579; J7030; Q9967